=== PATIENT | female | born 1950 | race Caucasian/White ===

== ENCOUNTER 2020-12-10 13:15 | Emergency (ER) | payer MEDICARE, SELFPAY ==
--- NOTE | 2020-12-10 13:23 | ED.NECK ---
HPI - Neck Pain/Injury General Chief Complaint: Neck Pain/Injury Stated Complaint: Neck, Back, Shoulder and Head pain Time Seen by Provider: 12/10/20 13:23 Source: patient and RN notes reviewed History of Present Illness HPI Narrative: Patient is a 70-year-old female who presents the urgent care with complaints of left-sided neck pain radiating to the left upper back, left shoulder and around the left breast. Patient states that it comes and goes and has been ongoing for approximately 4 days. Patient states that today she now has a headache. Patient denies of any past cardiac history but does take lisinopril for high blood pressure. Patient states that her father at a young age due to a silent NM. Patient denies any use of [id number] medication for her discomfort. Denies of any strenuous activity or any recent heavy lifting, pulling or pushing. No other acute complaints. No acute distress noted. Patient aware of the plan of care. Some parts of this dictation were generated by voice recognition software and may contain typographical and/or grammatical inaccuracies. Related Data Home Medications Medication Instructions Recorded Confirmed atorvastatin 10 mg PO DAILY 12/10/20 12/10/20 levothyroxine 100 mcg PO DAILY 12/10/20 12/10/20 lisinopril 20 mg PO DAILY 12/10/20 12/10/20 Allergies Allergy/AdvReac Type Severity Reaction Status Date / Time No Known Allergies Allergy Verified 12/10/20 13:34 Review of Systems Review of Systems: Narrative: CONSTITUTIONAL: Denies fever, chills, or sweats. EYES: Denies visual changes, redness, or discharge. ENT: Denies rhinorrhea, congestion, sore throat, or otalgia. CARDIOVASCULAR: Denies chest pain, palpitations, or edema. RESPIRATORY: Denies cough or dyspnea. GASTROINTESTINAL: Denies abdominal pain, nausea, vomiting, or diarrhea. GENITOURINARY: Denies dysuria or hematuria. SKIN: Denies rash or itching. MUSCULOSKELETAL: Reports of left-sided neck pain radiating to the left upper back, left shoulder and around the left breast NEUROLOGIC: Denies headache, numbness, or weakness. All other systems reviewed are negative, except as documented in HPI. [facility] Social History Social History Gender identity (if verbalized by the patient): Female Comments At the time of my signature, I reviewed and agree with the nursing past medical, surgical, social, and family history. There is no relevant family history pertinent to the patient complaint. Exam Narrative: Exam Narrative: GENERAL: This is a well-nourished, well-developed patient, in no apparent distress. HEAD: normocephalic, atraumatic. EYES: PERRL. Sclera clear/white. Vision is grossly intact. EARS: External ears normal NOSE: External nose normal with no obvious nasal discharge, nares without redness, no rhinorrhea. THROAT: Mucous membranes moist NECK: Neck supple, non-tender without lymphadenopathy CARDIOVASCULAR: Regular rate and rhythm without murmurs, gallops, or rubs. RESPIRATORY: Clear to auscultation. Breath sounds equal bilaterally. No wheezes, rales, or rhonchi. SKIN: warm, intact with no suspicious lesions or rash, good texture and turgor. NEURO: awake, alert, and oriented to person, place and time. There were no obvious focal neurologic abnormalities. EXTREMITIES: No clubbing, cyanosis, or edema. BACK: Nontender without deformity or crepitance. No flank tenderness. Course Vital Signs Vital signs: Vital Signs Temperature 98.8 F 12/10/20 13:34 Pulse Rate 66 12/10/20 13:34 Respiratory Rate 16 12/10/20 13:34 Blood Pressure 143/66 H 12/10/20 13:34 Pulse Oximetry 98 12/10/20 13:34 Temperature 98.8 F 12/10/20 13:34 Pulse Rate 66 12/10/20 13:34 Respiratory Rate 16 12/10/20 13:34 Blood Pressure 143/66 H 12/10/20 13:34 Pulse Oximetry 98 12/10/20 13:34 Reviewed-patient is informed that they may have pre-hypertension or hypertension based on a blood pressure reading in the de
[2020-12-10 13:34] VITALS: BP 143/66; PULSE 66; RESP 16; TEMP 37.1; O2SAT 98
--- NOTE | 2020-12-10 13:35 | ECG_ITS ---
Measurements Intervals [place] Rate: 59 P: 57 CO: 202 QRS: -8 QRSD: 100 T: 18 QT: 406 QTc: 405 Interpretive Statements SINUS RHYTHM BORDERLINE T WAVE ABNORMALITY- INFERIOR LEADS BASELINE WANDER- I, II, AVR, AVL,A VF, V1-V6 BORDERLINE ECG Electronically Signed On 12-10-2020 14:34:18 CDT by Jose Connor D.O.
== END 2020-12-10 14:12 | disposition left against medical advice (07) ==
PROVIDERS: Emergency Provider Nurse Practitioner Family
DX: M54.2 Cervicalgia (principal); R51.9 Headache, unspecified; E78.00 Pure hypercholesterolemia, unspecified; I10 Essential (primary) hypertension; E03.9 Hypothyroidism, unspecified
CPT/HCPCS: 93005; 99213; G0463